=== PATIENT | female | born 1965 | race Caucasian/White ===

== ENCOUNTER 2024-05-08 07:26 | Day surgery (SDC) | payer BC ==
[~2024-05-08] VITALS: Ht 167.6 cm; Wt 72.9 kg
[~2024-05-08 07:26] MED LIST: LR 1,000 ML IV SCH; Ondansetron 4 MG/2 ML VIAL IV PRN
[2024-05-08 07:34] VITALS: BP 149/92; PULSE 80; TEMP 97
[2024-05-08] MEDS ORDERED: PRIL40 PO (07:39)
[2024-05-08] MEDS ORDERED: IMITREX100 MG PO (07:39)
[2024-05-08] MEDS ORDERED: TOPAMAX50 MG PO (07:39)
[2024-05-08] MEDS ORDERED: EFFEXOR-XR150 MG PO (07:40)
[2024-05-08] MEDS ORDERED: PREMPRO 0.625/21 TAB PO (07:40)
[2024-05-08] MEDS ORDERED: ZOFRAN ODT4 MG PO (07:41)
[2024-05-08] MEDS ORDERED: NORCO 325 MG-7.1 TAB PO (07:41)
--- NOTE | 2024-05-08 07:59 | NUR ---
The patient ambulated back to [facility] independently using a steady gait and appeared to tolerate the activity well. Vital signs obtained. Consent signed. 20G IV started in right hand with one stick, LR infusing without difficulty. Assessment completed. Home medications reconcilled. Warm blanket provided. Mother, Lisette, brought back to be at her bedside. Denies any further needs at this time.
[2024-05-08] MEDS ORDERED: Ondansetron 4 MG/2 ML VIAL ONE (08:55)
[2024-05-08] MEDS ORDERED: Lidocaine PF 2% (20 MG/ML) 5 ML VIAL ONE (08:55)
[2024-05-08 09:25] VITALS: BP 126/91; PULSE 84; TEMP 96.4
[2024-05-08 09:30] VITALS: BP 138/90; PULSE 72
--- NOTE | 2024-05-08 10:24 | NUR ---
0925- PT RETURNS FROM ENDO PROCEDURE VIA CART AND RN ASSIST TO [facility]. PT AMBULATES FROM CART TO RECLINER WITH ASSIST. MONITORS ON AND ALARMS SET. CALL LIGHT WITHIN REACH. REPORT RECEIVED FROM [facility] [place]. PT ALERT AND ORIENTED. PT REQUESTS DRINK. PT DENIES AN PAIN OR NAUSEA. 929- PT TAKING DRINK WELL. NO COMPLICATIONS NOTED. 1000- DISCHARGE INSTRUCTIONS GIVEN TO PT. ALL QUESTIONS ANSWERED. 101- PT TRANSFERRED OUT OF THE HOSPITAL VIA WHEELCHAIR TO PRIVATE VEHICLE DRIVEN BY MOTHER.
== END 2024-05-08 10:10 | disposition home or self-care (01) ==
LOC: SDCO 07:26
DX: K21.00 Gastro-esophageal reflux disease with esophagitis, without bleeding (principal); M54.2 Cervicalgia; G89.29 Other chronic pain
CPT/HCPCS: J2405; J2704; J7120